=== PATIENT | male | born 1995 | race Caucasian/White ===

== ENCOUNTER 2017-06-01 22:22 | Emergency (ER) | payer BC ==
[~2017-06-01] VITALS: Ht 177.8 cm; Wt 88.5 kg
--- NOTE | 2017-06-01 23:55 | NUR ---
Patient walked in to ER c/o lacerations. Patient states he was playing basketball and collided with a wall. Patient presents with laceration to his forehead and nose as well as an abrasion to his lip. To room 3A.
--- NOTE | 2017-06-02 00:06 | NUR ---
ERMD at bedside for MSE.
[2017-06-02] MEDS ORDERED: TDAP DIPH,PERTUSS,TET VAC/PF 0.5 ML DISP.SYRIN IM ONE ×2 (00:15→02:05)
--- NOTE | 2017-06-02 02:33 | NUR ---
Patient discharged to home in stable conditon. Written and verbal after care instructions given. Patient verbalizes understanding of instructions.
== END 2017-06-02 02:34 | disposition home or self-care (01) ==
LOC: ER 22:27
DX: S06.0X0A Concussion without loss of consciousness, initial encounter (principal); S01.81XA Laceration without foreign body of other part of head, initial encounter; X58.XXXA Exposure to other specified factors, initial encounter; Y93.67 Activity, basketball; Y92.89 Other specified places as the place of occurrence of the external cause; Y99.8 Other external cause status
CPT/HCPCS: 70450; 70486; 72125; 90715; A4217; A4663